=== PATIENT | male | born 1970 | race Caucasian/White ===

== ENCOUNTER 2019-07-07 12:37 | Emergency (ER) | payer OTHER ==
--- NOTE | 2019-07-07 13:27 | EDM.PDOC ---
ED HPI GENERAL MEDICAL PROBLEM - General Chief Complaint: Cardiovascular Problem Stated Complaint: ISSUES FROM HEART PROCDURE Time Seen by Provider: 07/07/19 13:15 Source of Information: Reports: Patient, Family History Limitations: Reports: No Limitations - History of Present Illness INITIAL COMMENTS - FREE TEXT/NARRATIVE: 49-year-old male had a cardiac ablation 4 days ago using both groin entry points. He arrives today concerned of increased bruising that has extended onto the penis. There is also small amount of swelling in the right groin but no warmth or tenderness. He called the cardiology clinic and was told to have it checked. Onset: Gradual Duration: Day(s): (2-3 days) Location: Reports: Other (Bilateral groins and penis, particularly the right groin) Associated Symptoms: Reports: No Other Symptoms Groin Pain Score (Numeric/FACES): 1 - Related Data Allergies Allergy/AdvReac Type Severity Reaction Status Date / Time No Known Allergies Allergy Verified 07/07/19 12:59 Home Meds: Home Meds Clopidogrel Bisulfate [Plavix] 75 mg PO DAILY 07/07/19 [History] Colchicine 0.6 mg PO BID 07/07/19 [History] Rivaroxaban [Xarelto] 20 mg PO DAILY 07/07/19 [History] Sotalol [Betapace] 120 mg PO BID 07/07/19 [History] atorvaSTATin [Lipitor] 40 mg PO DAILY 07/07/19 [History] raNITIdine HCl [Zantac] 150 mg PO BID 07/07/19 [History] Past Medical History HEENT History: Reports: Impaired Vision Cardiovascular History: Reports: Afib, Stents - Infectious Disease History Infectious Disease History: Reports: Chicken Pox - Past Surgical History Cardiovascular Surgical History: Reports: Coronary Artery Stent, Other (See Below) Other Cardiovascular Surgeries/Procedures: ablasion. jul 03 Social & Family History - Tobacco Use Smoking Status *Q: Current Every Day Smoker Years of Tobacco use: 35 Packs/Tins Daily: 1 Used Tobacco, but Quit: No Second Hand Smoke Exposure: Yes - Caffeine Use Caffeine Use: Reports: Coffee - Alcohol Use Days Per Week of Alcohol Use: 2 Number of Drinks Per Day: 3 Total Drinks Per Week: 6 - Recreational Drug Use Recreational Drug Use: No ED ROS GENERAL - Review of Systems Review Of Systems: See Below Constitutional: Denies: Fever, Chills HEENT: Denies: Vision Change Respiratory: Denies: Cough Cardiovascular: Denies: Chest Pain GI/Abdominal: Denies: Abdominal Pain, Nausea, Vomiting Skin: Reports: Bruising Neurological: Denies: Paresthesia ED EXAM, GENERAL - Physical Exam Exam: See Below Exam Limited By: No Limitations General Appearance: Alert, No Apparent Distress Respiratory/Chest: No Respiratory Distress Cardiovascular: Regular Rate, Rhythm GI/Abdominal: Other (There is bruising present in both groins, a small hematoma has formed which is nontender in the right groin. It is about 2 cm across. There is also bruising that is extended onto the shaft of the penis but no edema.) (Male) Exam: Other (Urine flow was normal). No: Suprapubic Fullness Course - Vital Signs Last Recorded V/S: Last Vital Signs Temp 97.5 F 07/07/19 13:09 Pulse 69 07/07/19 13:09 Resp 16 07/07/19 13:09 BP 128/88 07/07/19 13:09 Pulse Ox 98 07/07/19 13:09 - Re-Assessments/Exams Free Text/Narrative Re-Assessment/Exam: 07/07/19 13:25 Patient was reassured. If the area becomes tender or warm, starts draining purulent material or malodorous material he needs to be rechecked. The bruising on the penis is natural after the procedure that he had. Departure - Departure Time of Disposition: 13:32 Disposition: Home, Self-Care 01 Clinical Impression: Traumatic hematoma of groin Traumatic ecchymosis of abdominal wall Qualifiers: Encounter type: initial encounter Qualified Code(s): S30.1XXA - Contusion of abdominal wall, initial encounter Instructions: Hematoma, [id number] Referrals: PCP,None [Primary Care Provider] - Forms: ED Department Discharge Care Plan Goals: Continue current medications, activity as tolerated and warm compresses may help keep the hematoma soft and resolve. No treatment is needed and return if worsening such as fever, concerns of infection or not healing satisfactorily.
== END 2019-07-07 13:32 | disposition home or self-care (01) ==
LOC: JP.ED 12:37
DX: L76.32 Postprocedural hematoma of skin and subcutaneous tissue following other procedure (principal); I48.91 Unspecified atrial fibrillation; F17.210 Nicotine dependence, cigarettes, uncomplicated; Z79.899 Other long term (current) drug therapy; Z95.5 Presence of coronary angioplasty implant and graft; Z86.79 Personal history of other diseases of the circulatory system; Z98.890 Other specified postprocedural states
CPT/HCPCS: 99283